=== PATIENT | male | born 1970 | race Asian ===

== ENCOUNTER 2018-03-01 15:07 | Emergency (ER) | payer OTHER ==
[~2018-03-01] VITALS: Ht 177.8 cm; Wt 102.1 kg
[~2018-03-01 15:07] MED LIST: CLIN300 PO
[2018-03-01 17:48] LABS: BASOPHILS PERCENT AUTO 0 % (0-2); EOSINOPHILS ABSOLUTE AUTO 0.03 K/mm3 (0.00-0.68); EOSINOPHILS PERCENT AUTO 1 % (0-6); Hematocrit 43.8 % (37.0-53.0); Hemoglobin 15.2 g/dL (13.5-17.5); IMMATURE GRAN ABSOLUTE AUTO 0.03 K/mm3 (0.00-0.10); IMMATURE GRAN PERCENT AUTO 1 % (0-1); LYMPHOCYTES ABSOLUTE AUTO 1.07 K/mm3 (0.84-5.20); LYMPHOCYTES PERCENT AUTO 23 % (21-46); MONOCYTES PERCENT AUTO 9 % (4-13); Mean Corpuscular HGB 32.8 pg (26.0-34.0); Mean Corpuscular HGB Conc 34.7 g/dL (31.5-36.5); Mean Corpuscular Volume 95 fL (80-100); Mean Platelet Volume 9.1 fL (9.1-12.4); NEUTROPHILS ABSOLUTE AUTO 3.16 K/mm3 (1.96-9.15); NEUTROPHILS PERCENT AUTO 68 % (41-73); Platelet Count 106 K/mm3 (150-400); RDW Coefficient Variation 12.4 % (11.7-14.2); Red Blood Cell Count 4.63 M/mm3 (4.30-5.90); White Blood Cell Count 4.69 K/mm3 (4.00-11.30)
[2018-03-01 18:09] LABS: Alanine Aminotransfer (ALT/SGP 37 U/L (12-78); Albumin, Blood 3.5 g/dL (3.4-5.0); Alk Phos 91 U/L (50-136); Anion Gap 12 mmol/L (6-16); Aspartate Aminotrans (AST/SGOT 30 U/L (12-37); Bilirubin, Total 0.7 mg/dL (0.1-1.0); Blood Urea Nitrogen 16 mg/dL (8-24); Bun/Creatinine Ratio 14.8 (12.0-20.0); CO2, Blood 20 mmol/L (21-32); Calcium, Blood 7.8 mg/dL (8.5-10.1); Chloride, Blood 102 mmol/L (98-108); Creatinine, Blood 1.08 mg/dL (0.60-1.20); Globulin, Blood 3.5 g/dL (2.2-4.0); Glomerular Filtration Rate >60 (60-); Glucose, Blood 166 mg/dL (70-99); Potassium, Blood 3.1 mmol/L (3.5-5.5); Sodium, Blood 134 mmol/L (136-145); Troponin I <0.015 ng/mL (0.000-0.040)
[2018-03-01] MEDS ORDERED: BENZ100A PO (18:49)
[2018-03-01] MEDS ORDERED: ALBU90OI INH (18:49)
[2018-03-01] MEDS ORDERED: IBUP600 PO (18:49)
[2018-03-01] MEDS ORDERED: Prednisone20 MG PO (18:49)
== END 2018-03-01 19:05 | disposition home or self-care (01) ==
LOC: ER 15:07
PROVIDERS: Emergency Medicine
DX: J20.9 Acute bronchitis, unspecified (principal); R07.9 Chest pain, unspecified; J11.1 Influenza due to unidentified influenza virus with other respiratory manifestations; Z91.030 Bee allergy status; Z88.0 Allergy status to penicillin; F17.210 Nicotine dependence, cigarettes, uncomplicated
CPT/HCPCS: 36415; 71046; 80053; 83880; 84484; 85025; 93005; 93010; 94640; 96374; 99284-25; J1885

== ENCOUNTER → 2018-06-09 | Outpatient (CLI) | payer OTHER ==
[~2018-06-09] MED LIST changes: +ALBU90OI INH; +BENZ100A PO; +IBUP600 PO; +Prednisone20 MG PO
== END ==
LOC: LAB SHORT 07:35 → PLD 07:35
DX: L30.8 Other specified dermatitis (principal)
CPT/HCPCS: 88305; 88312

== ENCOUNTER → 2020-01-13 | Outpatient (CLI) | payer OTHER ==
[2020-01-13 16:13] LABS: Hematocrit 47.5 % (37.0-53.0); Hemoglobin 16.1 g/dL (13.5-17.5); Mean Corpuscular HGB 33.5 pg (26.0-34.0); Mean Corpuscular HGB Conc 33.9 g/dL (31.5-36.5); Mean Corpuscular Volume 99 fL (80-100); Mean Platelet Volume 9.3 fL (9.1-12.4); Platelet Count 218 K/mm3 (150-400); RDW Coefficient Variation 12.8 % (11.7-14.2); RDW Standard Deviation 46.5 fL (35.1-46.3)
[2020-01-13 16:31] LABS: Alanine Aminotransfer (ALT/SGP 48 U/L (12-78); Albumin, Blood 3.7 g/dL (3.4-5.0); Albumin/Globulin Ratio 1.2 (0.8-1.8); Alk Phos 79 U/L (50-136); Anion Gap 5 mmol/L (6-16); Aspartate Aminotrans (AST/SGOT 33 U/L (12-37); Bilirubin, Total 0.3 mg/dL (0.1-1.0); Blood Urea Nitrogen 17 mg/dL (8-24); Bun/Creatinine Ratio 16.7 (12.0-20.0); CO2, Blood 27 mmol/L (21-32); Calcium, Blood 8.1 mg/dL (8.5-10.1); Chloride, Blood 109 mmol/L (98-108); Creatinine, Blood 1.02 mg/dL (0.60-1.20); Globulin, Blood 3.1 g/dL (2.2-4.0); Glomerular Filtration Rate >60 (60-); Glucose, Blood 147 mg/dL (70-99); Potassium, Blood 4.2 mmol/L (3.5-5.5); Sodium, Blood 141 mmol/L (136-145); Total Protein, Blood 6.8 g/dL (6.4-8.2)
[2020-01-13 18:11] LABS: BASOPHILS PERCENT MAN 0 % (0-2); EOSINOPHILS ABSOLUTE MAN 0.23 K/mm3 (0.00-0.68); EOSINOPHILS PERCENT MAN 1 % (0-6); LYMPHOCYTES ABSOLUTE MAN 12.03 K/mm3 (0.84-5.20); LYMPHOCYTES PERCENT MAN 51 % (21-46); MONOCYTES PERCENT MAN 14 % (4-13); NEUTROPHILS ABSOLUTE MAN 8.02 K/mm3 (1.96-9.15); SEG NEUTROPHILS PERCENT MAN 34 % (41-73); TOTAL CELLS COUNTED 100
== END | disposition home or self-care (01) ==
LOC: PLD 15:25 → LAB SHORT 15:25
PROVIDERS: Family Medicine
DX: K52.9 Noninfective gastroenteritis and colitis, unspecified (principal)
CPT/HCPCS: 80053; 83690; 85025

== ENCOUNTER → 2022-05-12 | Outpatient (CLI) | payer OTHER | LOC: PLD 07:35 → LAB SHORT 07:35 | DX: R23.4 Changes in skin texture (principal) | CPT/HCPCS: 88312 ==